=== PATIENT | male | born 1960 | race Caucasian/White ===

== ENCOUNTER 2022-07-01 07:16 | Day surgery (SDC) | payer BC ==
[~2022-07-01] VITALS: Ht 175.3 cm; Wt 95.3 kg
[2022-07-01] MEDS ORDERED: CLINDAMYCIN PHOS 600 MG/ D5W 50 ML PREMIX IV ONE (09:00)
[2022-07-01] MEDS ORDERED: BUPIVACAINE LIPOSOME/PF 266 MG/20 ML VIAL INFIL ONE (09:10)
[2022-07-01] MEDS ORDERED: LR 1,000 ML IV.SOLN IV ONE (09:20)
[2022-07-01] MEDS ORDERED: DESFLURANE 15 MIN GAS INH ONE (09:20)
[2022-07-01] MEDS ORDERED: ONDANSETRON HCL 4 MG/2 ML VIAL IVP ONE (09:20)
[2022-07-01] MEDS ORDERED: KETOROLAC TROMETHAMINE 30 MG VIAL IVP ONE (09:20)
[2022-07-01] MEDS ORDERED: DEXAMETHASONE SOD PHOSPHATE 4 MG/ML VIAL IVP ONE (09:20)
[2022-07-01] MEDS ORDERED: fentaNYL CITRATE/PF 100 MCG/2 ML AMP IVP ONE (09:20)
[2022-07-01] MEDS ORDERED: NS IRRIG SOLN 1000 ML IR ONE (09:20)
[2022-07-01] MEDS ORDERED: ROCURONIUM BROMIDE 10 MG/ML (ZEMURON) IV ONE (09:20)
[2022-07-01] MEDS ORDERED: PROPOFOL 200MG/ 20ML VIAL (DIPRIVAN) IV ONE (09:20)
[2022-07-01] MEDS ORDERED: SUGAMMADEX SODIUM 200 MG/2 ML VIAL IV ONE (09:20)
[2022-07-01] MEDS ORDERED: ACETAMINOPHEN I.V. 1000 MG 100 ML IV ONE (09:56)
[2022-07-01] MEDS ORDERED: HYDROmorphone 1 MG/ML INJ. CARTRIDGE IVP PRN ×2 (10:00)
[2022-07-01] MEDS ORDERED: hydrALAZINE HCL 20 MG/ML VIAL IVP PRN (10:00)
[2022-07-01] MEDS ORDERED: MIDAZOLAM HCL 2 MG/2 ML VIAL (VERSED) IVP PRN (10:00)
[2022-07-01] MEDS ORDERED: LR 1,000 ML IV SCH (10:00)
[2022-07-01] MEDS ORDERED: METOCLOPRAMIDE HCL 10 MG/2 ML VIAL IVP PRN (10:00)
[2022-07-01] MEDS ORDERED: MEPERIDINE HCL/PF 25 MG/ML DISP.SYRIN IVP PRN (10:00)
[2022-07-01] MEDS ORDERED: LABETALOL 100 MG/ 20ML VIAL IVP PRN (10:00)
[2022-07-01 15:24] VITALS: BP_SYST 133
== END 2022-07-01 14:25 | disposition home or self-care (01) ==
LOC: SDS 07:16 → SMU 07:18 → EDSTATUS 12:15 → SDS 14:25
PROVIDERS: ATTEND Surgery
DX: K40.90 Unilateral inguinal hernia, without obstruction or gangrene, not specified as recurrent (principal); I11.0 Hypertensive heart disease with heart failure; I50.9 Heart failure, unspecified; E78.5 Hyperlipidemia, unspecified; E66.9 Obesity, unspecified; Z88.0 Allergy status to penicillin; Z20.822 Contact with and (suspected) exposure to COVID-19; Z68.30 Body mass index [BMI] 30.0-30.9, adult
CPT/HCPCS: 36415; 49505; 88302; U0003; J3490 ×2; C9290; J1100; J1885; J2405; J2704; J3010; J7120; C1781; J0131